=== PATIENT | male | born 1990 | race Two or more races ===

== ENCOUNTER 2017-06-13 20:12 | Emergency (ER) | payer OTHER ==
[~2017-06-13] VITALS: Ht 175.3 cm; Wt 95.3 kg
[2017-06-13 20:50] VITALS: BP 135/84
[2017-06-13] MEDS ORDERED: Tetanus/Diptheria/Pertussis Vaccine 0.5ml Syr IM ONE (21:00)
[2017-06-13] MEDS ORDERED: Bacitracin Oint UD TOPIC ONE (21:00)
--- NOTE | 2017-06-13 21:01 | Emergency Room Report ---
History of Present Illness General Chief Complaint: Laceration Source: Patient Present Illness HPI 26-year-old male no significant past medical history sustained laceration to left thumb while using a knife at work. Minimal bleeding that has since resolved. States that he is still able to use his thumb without difficulty. Tetanus is not up-to-date Allergies: Coded Allergies: No Known Allergies (Unverified , 06/13/17) Patient History Past Medical History: none Past Surgical History: none Pertinent Family History: none Reviewed Nursing Documentation: PMH: Agreed, PSxH: Agreed Nursing Documentation-PMH Past Medical History: No Stated History Review of Systems All Other Systems: negative except mentioned in HPI Physical Exam Vital Signs Date Time Temp Pulse Resp B/P (MAP) Pulse Ox O2 Delivery O2 Flow Rate FiO2 06/13/17 20:21 98.4 71 15 135/84 98 Room Air Sp02 EP Interpretation: reviewed, normal General Appearance: normal inspection, well appearing, no apparent distress, alert, GCS 15, non-toxic Head: normocephalic, atraumatic Eyes: bilateral eye normal inspection, bilateral eye PERRL, bilateral eye EOMI ENT: normal ENT inspection, normal pharynx, normal voice, moist mucus membranes Neck: normal inspection, full range of motion, supple Respiratory: normal inspection, lungs clear, normal breath sounds, no respiratory distress, no retraction, no wheezing, speaking full sentences, chest symmetrical Cardiovascular #1: normal inspection, regular rate, rhythm, normal capillary refill Cardiovascular #2: 2+ radial (R), 2+ radial (L) Gastrointestinal: normal inspection, non tender, soft, non-distended, no guarding Genitourinary: no CVA tenderness Musculoskeletal: back normal, normal range of motion, other - L thumb with minimal 1x1cm clean skin avulsion no active bleeding. full range of motion all fingers Neurologic: normal inspection, alert, oriented x3, responsive, motor strength/ tone normal, sensory intact, normal gait, speech normal Psychiatric: normal inspection, judgement/insight normal, memory normal Skin: normal inspection, normal color, no rash, warm/dry, well hydrated, normal turgor Medical Decision Making Diagnostic Impression: Primary Impression: Avulsion of skin of finger without complication ER Course 26 yo M with skin avulsion no repair indicated Plan: irrigate, bacitracin, Tdap ER course: Irrigated, bacitracin applied, sterile dressing applied. Tdap given. Disposition: Patient will be discharged home. Strict return precautions discussed with patient such as fever, chills, increasing bleeding to site, purulent drainage, rapid swelling or redness to area. Patient verbalizes understanding. Patient is informed of inevitable scar that will result from laceration despite repair. Pt instructed to avoid sun exposure to decrease the appearance of scar. Patient instructed to return to ED or their primary care doctor in 1 week for wound recheck. Patient agrees with plan. Please note that this Emergency Department Report was dictated using [employer] leg operator technology software, occasionally this can lead to erroneous entry secondary to interpretation by the dictation equipment Last Vital Signs Date Time Temp Pulse Resp B/P (MAP) Pulse Ox O2 Delivery O2 Flow Rate FiO2 06/13/17 20:21 98.4 71 15 135/84 98 Room Air Disposition: HOME, SELF-CARE Condition: Improved Astrid Nava M.D. Jun 13, 2017 21:01
[2017-06-13 21:50] VITALS: BP 135/84
== END 2017-06-13 22:00 | disposition home or self-care (01) ==
LOC: EMR 21:57
DX: S61.002A Unspecified open wound of left thumb without damage to nail, initial encounter (principal); Z23 Encounter for immunization; W26.0XXA Contact with knife, initial encounter; Y93.9 Activity, unspecified; Y99.0 Civilian activity done for income or pay
CPT/HCPCS: 90471; 90715; 99284